=== PATIENT | female | born 1955 | race Caucasian/White ===

== ENCOUNTER 2021-04-23 08:24 | Day surgery (SDC) | payer MEDICARE ==
[2021-04-20 14:11] VITALS: BMI 26.4
[~2021-04-23 08:24] MED LIST: DEXAMETHASONE SOD PHOSPHATE 4 MG/ML 1 ML VIAL IV ONE; HYDROmorphone 0.5 MG/0.5 ML SYRINGE IVP PRN; LACTATED RINGERS 1,000 ML IV SCH; MIDAZOLAM 2 MG/2 ML VIAL IV PRN; ONDANSETRON 4 MG/2 ML VIAL IVP ONE
[2021-04-23] MEDS ORDERED: LACTATED RINGERS 1,000 ML IV ONE (08:46)
[2021-04-23 09:01] VITALS: TEMP 97.8
[2021-04-23] MEDS ORDERED: MIDAZOLAM 2 MG/2 ML VIAL IVP ONE (09:17)
[2021-04-23] MEDS ORDERED: fentaNYL (PF) 50 MCG/ML 2 ML AMP IVP ONE ×2 (09:18→09:20)
[2021-04-23] MEDS ORDERED: PHENYLEPHRINE-0.9% NACL SYG 1,000 MCG/10 ML SYRINGE ONE (09:52)
[2021-04-23] MEDS ORDERED: PROPOFOL 10 MG/ML 20 ML VIAL IV ONE (09:52)
[2021-04-23] MEDS ORDERED: LIDOCAINE 1% INJ 10MG/ML (20 ML MDV) ONE (09:52)
[2021-04-23] MEDS ORDERED: SODIUM CHLORIDE 0.9% (PF) 10 ML VIAL ONE (09:52)
[2021-04-23] MEDS ORDERED: MIDAZOLAM 2 MG/2 ML VIAL ONE (09:52)
[2021-04-23] MEDS ORDERED: ROPIVACAINE 5 MG/ML 30 ML VIAL ONE (09:52)
--- NOTE | 2021-04-23 11:07 | P.ANPRN ---
Procedure Note - Anesthesia - Nerve Block Performed Left Popliteal Single Time Out Performed: Yes (917) Date of Procedure: 04/23/21 Procedure Start Time: :18 Procedure Stop Time: : Location of Patient: PreOp Indication: Acute Post-Operative Pain, Requested by Surgeon Specifically requested for management of pain by DrMellisa: [place] Sedation Type: Sedate with meaningful contact maintained Preparation: Sterile Prep Position: Right Lateral Catheter: None Needle Types: Pajunk Needle Gauge: 21 Ultrasound used to visualize needle placement: Yes Ultrasound used to observe medication spread: Yes Injectate: 0.5% Ropivacaine (see comment for volume) (15cc + 15cc nacl pf) Blood Aspirated: No Pain Paresthesia on Injection Noted: No Resistance on Injection: Normal Image Stored and Saved: Yes Events: Uneventful and Well Tolerated
--- NOTE | 2021-04-23 11:08 | P.ANPRN ---
Procedure Note - Anesthesia - Nerve Block Performed Left Adductor Canal Single Time Out Performed: Yes (917) Date of Procedure: 04/23/21 Procedure Start Time: Procedure Stop Time: Location of Patient: PreOp Indication: Acute Post-Operative Pain, Requested by Surgeon Specifically requested for management of pain by DrMellisa: [place] Sedation Type: Sedate with meaningful contact maintained Preparation: Sterile Prep Position: Supine Catheter: None Needle Types: Pajunk Needle Gauge: 21 Ultrasound used to visualize needle placement: Yes Ultrasound used to observe medication spread: Yes Injectate: 0.5% Ropivacaine (see comment for volume) (15cc + 15cc nacl pf) Blood Aspirated: No Pain Paresthesia on Injection Noted: No Resistance on Injection: Normal Image Stored and Saved: Yes Events: Uneventful and Well Tolerated
--- NOTE | 2021-04-23 11:41 | P.OP ---
Date of Procedure: 04/23/21 Preoperative Diagnosis: 1. Left ankle instability 2. Ruptured peroneus brevis tendon left ankle Postoperative Diagnosis: 1. Same 2. Same Procedure(s) Performed: 1. Secondary repair left lateral ankle ligaments 2. Secondary repair flexor tendon left ankle Implants: Arthrex internal brace Arthrex knotless fiber Jero's 2 Anesthesia: GETA Surgeon: Joseph Park Estimated Blood Loss (ml): 5 Pathology: none sent Condition: stable Disposition: PACU Operative Findings: Severe split longitudinal tear of the peroneus brevis tendon Description of Procedure: Prior to the patient being brought to the operative room, anesthesia administered nerve block on the left lower extremity. The patient was then brought into the operating room and placed on table supine position. Timeout was taken to confirm correct patient identifiers, correct site of surgery, and correct procedure. When everybody in the room was in agreement with the timeout, the patient was induced and placed under general anesthesia. A well- padded tourniquet was placed on the left midcalf keeping 3-4 inches distal to the fibular neck. A wedge was placed underneath the left hip to internally rotate the left leg, and then the left leg was prepped and draped in usual manner. The left leg was exsanguinated with an Esmarch bandage and the tourniquet inflated to 250 mmHg. Attention was directed over the lateral ankle were a midline incision was made over the fibula and as it approached the distal aspect a curved anteriorly following the course of the peroneal tendons. The incision was deepened down to the subcutaneous tissue careful to identify, avoid, and retract any neurovascular structures and cauterize any bleeding vessels. Blunt dissection was first done posterior to expose the peroneal tendons. The peroneal tendon sheath was entered with blunt instrumentation and the resected off the posterior aspect of the fibula. Both tendons were delivered into the surgical field and the peroneus brevis of the severe longitudinal split tear measuring approximately 5 cm starting proximal to the ankle joint and ending near the anterior process of the calcaneus. The abnormal portion of tendon was sharply excised leaving the remaining normal tendon behind. The Proteus longus tendon was also inspected and showed no pathology. Utilizing 3-0 Vicryl the peroneus brevis tendon was re-tubularized. Once it was placed back in the fibular groove and the ankle and foot were held in neutral it appeared that it had excessive laxity. Therefore while applying proximal tension on the peroneus brevis and distal tension on the peroneus longus a [id number] anastomosis was completed between the peroneus brevis and longus. Once released the tension of the peroneus longus tension the peroneus brevis. Both peroneal tendons were placed back into the peroneal groove of the fibula at which point the ankle was taken through range of motion. The tendon complex glided smoothly through the area without any catching or clicking. The wound is then thoroughly irrigated with antibiotic saline. The peroneal retinaculum was then oversewn back onto the posterior surface of the lateral malleolus. Attention was directed towards the anterior lateral aspect of the ankle joint. Incision was made through the capsule and ligamentous structures just off the anterior surface of the lateral malleolus and then the soft tissues reflected distally. A Gurjit was used to remove the cortical bone of the anterior surface of the lateral malleolus to facilitate ligament re-adhesion upon repair. With the ankle and subtalar joints in neutral position the anterior lateral portion of the talus was palpated to find the flat area just distal to the articular surface. Once found the small stab incision was made to the capsule and then the 3.4 mm drill bit was used to create the drill hole into the talus directed away from the ankle and subtalar joints. The hole was tapped and the 4.75 anchor inserted down proper depth. Same drill was used to create the hole for the 3.5 mm anchor in the lateral malleolus. The submersible pilot holes for the fiber Jero anchors were then made in the lateral malleolus one superior and one inferior to the 3.4 mm drill hole. With the neurosurgery spine physician still in place the anchors were placed and impacted into the lateral malleolus. The inserters were then removed. The wound is irrigated with antibiotic saline. The suture on the fiber Jero anchors was then used to capture the distal capsular and ligamentous structures of the ankle joint. With the ankle maximally dorsiflexed and everted the sutures on the anchors are then tied down to repair the structures back to the anterior surface of the lateral malleolus. The sutures were then cut and then the 2 arms of the internal brace were fed through the 3.5 mm anchor which was then aligned with the drill hole in the lateral malleolus. Proper described tensioning techniques were utilized and the suture anchor were inserted lateral malleolus and then the anchor advanced to lock it in place. The wound is again irrigated with normal saline with antibiotic. All Vicryl was used to repair the overlying retinaculum and periosteal flap a pants over vest fashion. Subcu closure was done for Monocryl and skin closure was done with 3-0 Stratafix in a running subcuticular manner. Dermal glue was applied and covered Steri-Strips. An Arthrex jumpstart dressing was placed directly over the incision. A bulky dry dressings applied to left ankle. The tourniquet was released and capillary refill return to all digits on the left foot. Then the patient was placed in a well-padded, well molded plaster posterior mold/sugar tong splint. Once the splint was in place ankle was held in maximum dorsiflexion and eversion as it dried. Then anesthesia was reversed and the patient was taken recovery with vital signs stable.
[2021-04-23 12:27] VITALS: RESP 16
[2021-04-23 12:39] VITALS: BP 134/80; PULSE 67
== END 2021-04-23 13:12 | disposition home or self-care (01) ==
LOC: OR 08:24
PROVIDERS: ATTEND Podiatrist
DX: M66.372 Spontaneous rupture of flexor tendons, left ankle and foot (principal); M25.372 Other instability, left ankle; E78.5 Hyperlipidemia, unspecified; H40.9 Unspecified glaucoma; R26.81 Unsteadiness on feet; I51.9 Heart disease, unspecified; Z97.3 Presence of spectacles and contact lenses; Z90.710 Acquired absence of both cervix and uterus; Z95.5 Presence of coronary angioplasty implant and graft; Z98.890 Other specified postprocedural states; Z83.3 Family history of diabetes mellitus; Z82.49 Family history of ischemic heart disease and other diseases of the circulatory system; Z79.82 Long term (current) use of aspirin; Z79.899 Other long term (current) drug therapy; Z88.5 Allergy status to narcotic agent
CPT/HCPCS: 64447; 64445; 76942; 27659; 27698; C1713 ×2; J2250; J1100; J2405; J2001; J3010; J2795; J2370; J2704